=== PATIENT | male | born 1985 | race African-American/Black ===

== ENCOUNTER 2016-06-13 07:47 | Emergency (ER) | payer OTHER ==
[~2016-06-13] VITALS: Ht 185.4 cm; Wt 108.9 kg
[~2016-06-13 07:47] MED LIST: CARAFATE1 GM/10 ML PO; FLEXERIL10 MG PO; HYDROCODONE/ACE1 TA1 PO; IBU800 MG PO; MEDROL DOSEPAK1 PAC PO; OMEPRAZOLE40 MG PO; ZOFRAN ODT4 MG PO
--- NOTE | 2016-06-13 08:03 | ED INFLUENZA/URI COMPLAINT ---
History of Present Illness General Chief Complaint: General Adult Stated Complaint: FEVER COUGH JOINT PAIN XS 2 WEEKS Source: patient Exam Limitations: no limitations Vital Signs & Intake/Output Vital Signs & Intake/Output Vital Signs Date Time Temp Pulse Resp B/P Pulse O2 O2 Flow FiO2 Ox Delivery Rate 06/13 0859 99.8 102 16 118/66 98 Room Air 06/13 0858 100.0 06/13 0819 101.0 06/13 0803 98 06/13 0751 101.0 128 20 110/68 98 Room Air Allergies Coded Allergies: No Known Allergies (06/13/16) Reconcile Medications Albuterol Sulfate (Ventolin Hfa) 90 MCG HFA.AER.AD 2 PUF INH Q4-6 PRN PRN SHORNTESS OF BREATH Augmentin (Augmentin 500-125 Tablet) 500 MG-125 MG TABLET 1 TAB PO BID PHARYNGITIS Benzonatate (Tessalon Perle) 100 MG CAPSULE 1 CAP PO TID PRN COUGH Methylprednisolone. 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 STATES FEVER LAST NIGHT "105". TEMP NOW 101. STATES "WHEN I LAY DOWN, I FEEL WATER IN MY THROAT AND I HAVE TO COUGH". Triage Nurses Notes Reviewed? yes Onset: Gradual Duration: constant Timing: recent history Severity: severe Severity Numbers: 7 HPI: Patient is a 30-year-old male with a unremarkable past medical history who presents to emergency room with a 3 day history of fever, chills, body aches, nonproductive cough and congestion and shortness of breath. Patient has positive sick contacts at home which his family members have now resolved symptoms. Patient has taken NyQuil and ibuprofen for his symptoms with minimal relief. Patient does not smoke. Denies any neck pain neck stiffness headache hemoptysis nausea vomiting chest pain or leg swelling. (TALHA DURHAM,ANABELLA) Past History Travel History Traveled to [place] past 21 day No Medical History Any Pertinent Medical History? none Neurological: NONE EENT: NONE Cardiovascular: NONE Respiratory: NONE Gastrointestinal: NONE Hepatic: NONE Renal: NONE Musculoskeletal: NONE Psychiatric: NONE Endocrine: NONE Blood Disorders: NONE Cancer(s): NONE FILTER CHANGER/Reproductive: NONE Tetanus Vaccine: 02/09/13 Surgical History Surgical History: NONE Psychosocial History What is your primary language [place]ian Tobacco Use: Never used ETOH Use: denies use Illicit Drug Use: denies illicit drug use Family History Hx Contributory? No (ANABELLA ANDUJAR) Review of Systems Review of Systems Constitutional: Reports: see HPI, chills, fever. EENTM: Reports: see HPI. Respiratory: Reports: see HPI, cough. Cardiovascular: Reports: no symptoms. GI: Reports: no symptoms. Genitourinary: Reports: no symptoms. Musculoskeletal: Reports: see HPI, joint pain. Skin: Reports: no symptoms. Neurological/Psychological: Reports: no symptoms. Hematologic/Endocrine: Reports: no symptoms. Immunologic/Allergic: Reports: no symptoms. All Other Systems: Reviewed and Negative (ANABELLA ANDUJAR) Physical Exam Physical Exam General Appearance: alert, comfortable Ears, Nose, Throat: normal ENT inspection, moist mucous membrane, hearing grossly normal, Tympanic normal, pharynx normal Comments: Well-developed well-nourished person in no acute distress HEENT: Normal EENT exam, extraocular motion intact, no nystagmus. Pupils equally round and reactive to light and accommodation. Nose is atraumatic. External auditory canal and Tympanic membranes clear. Pharynx normal. No swelling or edema. Neck: Supple, no lymphadenopathy, normal range of motion without pain or tenderness Back: Nontender, no CVA tenderness. Cardiovascular: Regular rate and rhythms no murmurs rubs or gallops, normal JVP Respiratory: Chest nontender. No respiratory distress.breath sounds clear to auscultation bilaterally Abdomen: Soft, nontender nondistended, no appreciable organomegaly. Normal bowel sounds. No ascites Extremity: No edema, no calf tenderness to palpation, normal and equal pulses. Neuro: Alert oriented x3, motor sensory normal, Skin: No appreciable rash on exposed skin, skin is warm and dry. Psych: Mood and affect is normal, memory and judgment is normal. Core Measures Severe Sepsis Present: No Septic Shock Present: No (ANABELLA ANDUJAR) Progress Differential Diagnosis: influenza, meningitis, neutropenia, otitis, pneumonia, pharyngitis, sinusitis Plan of Care: Orders Procedure Date/time Status RAPID VIRAL INFLUENZA A 01/26 0809 Complete THROAT CULTURE W/QUICK STREP 06/13 808 Complete Patient currently is in no apparent distress patient did not have a fever with Tylenol was administered. No signs of meningitis. Clear lungs to auscultation no respiratory distress oxygen saturation 98%. Patient had negative influenza however patient had positive strep Patient was given [facility] referral phone number to call for follow-up and stress importance of follow-up this week Upon discharge patient looks well no apparent distress and will comply with discharge instructions and had no questions. (ANABELLA ANDUJAR) Initial ED EKG: none (ANABELLA ANDUJAR) Departure Departure Disposition: HOME OR SELF CARE Condition: Stable Clinical Impression Primary Impression: Streptococcal pharyngitis Secondary Impressions: Upper respiratory infection Referrals: PATIENT HAS NO PRIMARY CARE DR (PCP/Family) Additional Instructions: As discussed begin [id number] Motrin for pain and inflammation and begin [id number] Tylenol for fevers. Begin the prescription of Tessalon Perles and Robitussin with codeine for cough. Begin the prescription of Ventolin for shortness of breath. If you develop a new concerning symptom return to emergency room immediately. Begin the prescription of Augmentin as directed for the full course and a prescription of Medrol Dosepak for inflammation. 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 (Medrol) 1 DP PO AD #1 DP 6 on day 1 then reduce by one tablet daily until gone (ANABELLA ANDUJAR) PA/HEALTH CLUB MANAGER Co-Sign Statement Statement: ED Attending supervision documentation- [] I saw and evaluated the patient. I have also reviewed all the pertinent lab results and diagnostic results. I agree with the findings and the plan of care as documented in the PA's/HEALTH CLUB MANAGER's documentation. [x] I have reviewed the ED Record and agree with the PA's/HEALTH CLUB MANAGER's documentation. [] Additions or exceptions (if any) to the PAs/HEALTH CLUB MANAGER's note and plan are summarized below: [] (CESAR YEN DO)
[2016-06-13] MEDS ORDERED: TESSALON PERLE100 M1 PO (08:31)
[2016-06-13] MEDS ORDERED: VENTOLIN HFA18 GM INH (08:31)
[2016-06-13] MEDS ORDERED: GUAIFENESIN-COD10 ML PO (08:31)
[2016-06-13] MEDS ORDERED: MEDROL4 M2 PO (08:50)
[2016-06-13] MEDS ORDERED: AUGMENTIN 500-1 EACH PO (08:50)
[2016-06-13 08:59] VITALS: BP 118/66
== END 2016-06-13 09:00 ==
LOC: ERH 07:47
DX: J02.0 Streptococcal pharyngitis (principal); J06.9 Acute upper respiratory infection, unspecified
CPT/HCPCS: 87804; 87804-59